=== PATIENT | female | born 1960 ===

== ENCOUNTER 2016-07-27 09:29 | Emergency (ER) | payer SELFPAY ==
[2016-07-27 09:42] VITALS: BP 138/82
[2016-07-27 10:05] LABS: Basophils % (Auto) 0.4 % (0.0-1.8); Eosinophils % (Auto) 0.6 % (0.0-4.3); Hematocrit 42.2 % (30.3-42.9); Hemoglobin 13.5 gm/dl (10.1-14.3); Mean Corpuscular HGB Conc 32 % (30-34); Mean Corpuscular Hemoglobin 26 pg (28-32); Mean Corpuscular Volume 82 fl (79-97); Platelet Count 279 K/mm3 (140-440); Red Blood Count 5.17 M/mm3 (3.65-5.03); Red Cell Distribution Width 15.3 % (13.2-15.2); White Blood Count 11.8 K/mm3 (4.5-11.0)
--- NOTE | 2016-07-27 10:05 | Emergency Department Report ---
Entered by SRIDHAR ALVES, acting as scribe for MARIANELA ST NP. Chief Complaint: Abdominal Pain Stated Complaint: ABD PAIN /BACK PAIN - HPI History of Present Illness: Pt c/o low back pain and LUQ pain nausea - D: normal this am Patient believes she is - lmp 3 m ago, 55 y age no vag bleed or dc nad no meds Denies PMHx Denies previous symptoms Notes tobacco use. Denies EtOH consumption LMP 3 months ago Denies PSHx - ROS Review of Systems: See above - Exam Vital Signs: Vital Signs 07/27/16 09:36 Temperature 98.0 F Pulse Rate 80 Respiratory 16 Rate Blood Pressure 138/82 O2 Sat by Pulse 98 Oximetry Physical Exam: General: alert, awake, and in no acute distress Abdominal: LUQ tenderness MSE screening note: Focused history and physical exam performed. Due to findings the following was ordered: ED Disposition for MSE Condition: Stable Instructions: Abdominal Pain (ED) This documentation as recorded by the scribe,SRIDHAR ALVES,accurately reflects the service I personally performed and the decisions made by ,MARIANELA LEBLANC NP.
[2016-07-27 10:18] LABS: Anion Gap 16 mmol/L; BUN/Creatinine Ratio 21.42; Blood Urea Nitrogen 15 mg/dL (7-17); Calcium 8.9 mg/dL (8.4-10.2); Carbon Dioxide 28 mmol/L (22-30); Chloride 101.5 mmol/L (98-107); Glucose 98 mg/dL (65-100); Potassium 4.1 mmol/L (3.6-5.0); Sodium 141 mmol/L (137-145)
[2016-07-27 10:32] LABS: Bacteria,Urine 1+ /HPF (Negative); Bilirubin,Urine NEG (Negative); Blood,Urine NEG (Negative); Ketones,Urine NEG (Negative); Leukocyte Esterase,Urine SM (Negative); Mucus,Urine FEW /HPF; Nitrite,Urine NEG (Negative); Protein,Urine <15 mg/dL mg/dL (Negative); Urobilinogen,Urine < 2.0 mg/dL (<2.0)
[2016-07-27 10:38] LABS: Alanine Aminotransferase 17 units/L (7-56); Albumin 4.2 g/dL (3.9-5); Albumin/Globulin Ratio 1.2 %; Alkaline Phosphatase 93 units/L (35-129); Amylase 39 units/L (27-131); Lipase 25 units/L (13-60); Total Protein 7.8 g/dL (6.3-8.2)
[2016-07-27 11:02] LABS: Bilirubin,Direct < 0.2 mg/dL (0-0.2)
--- NOTE | 2016-07-27 13:03 | Emergency Department Report ---
ED Abdominal Pain HPI - General Chief Complaint: Abdominal Pain Stated Complaint: ABD PAIN /BACK PAIN Time Seen by Provider: 07/27/16 13:01 Source: patient Mode of arrival: Ambulatory Limitations: No Limitations - History of Present Illness -: Gradual Location: LLQ Radiation: none Migration to: no migration Severity: mild Quality: other Consistency: intermittent Improves With: nothing Worsens With: nothing Context: foreign travel Associated Symptoms: denies other symptoms. denies: nausea, vomiting, diarrhea , fever (perimenopausal. stated she had sex w and afraid ) - Related Data Allergies Allergy/AdvReac Type Severity Reaction Status Date / Time No Known Allergies Allergy Unverified 07/27/16 09:36 ED Review of Systems ROS: Stated complaint: ABD PAIN /BACK PAIN Other details as noted in HPI Comment: All other systems reviewed and negative Constitutional: no symptoms reported Eyes: as per HPI ENT: as per HPI Respiratory: no symptoms reported Cardiovascular: as per HPI Endocrine: no symptoms reported Gastrointestinal: as per HPI, abdominal pain (llq pinching pain). denies: nausea, vomiting, diarrhea, constipation, hematemesis, melena, hematochezia Genitourinary: as per HPI. denies: urgency, dysuria Musculoskeletal: as per HPI. denies: back pain Skin: as per HPI. denies: rash, lesions Neurological: as per HPI Psychiatric: as per HPI Hematological/Lymphatic: as per HPI (no fever. playing on phone. nad) ED Past Medical Hx - Past Medical History Previous Medical History?: No - Surgical History Past Surgical History?: Yes Additional Surgical History: tubal ligation - Social History Smoking Status: Current Every Day Smoker Substance Use Type: None ED Physical Exam - General Limitations: No Limitations General appearance: alert - Head Head exam: Present: atraumatic - Eye Eye exam: Present: normal appearance - ENT ENT exam: Present: normal exam - Neck Neck exam: Present: normal inspection - Respiratory Respiratory exam: Present: normal lung sounds bilaterally - Cardiovascular Cardiovascular Exam: Present: regular rate - GI/Abdominal GI/Abdominal exam: Present: soft, normal bowel sounds. Absent: distended, tenderness, guarding, rebound, rigid, diminished bowel sounds, hyperactive bowel sounds, hypoactive bowel sounds, organomegaly, mass, bruit, pulsatile mass , hernia - Rectal Rectal exam: Present: deferred - Extremities Exam Extremities exam: Present: normal inspection - Back Exam Back exam: Present: normal inspection - Neurological Exam Neurological exam: Present: alert, altered, oriented X3 - Psychiatric Psychiatric exam: Present: normal affect, normal mood - Skin Skin exam: Present: warm, dry, intact, normal color. Absent: rash ED Course Vital Signs 07/27/16 09:36 Temperature 98.0 F Pulse Rate 80 Respiratory 16 Rate Blood Pressure 138/82 O2 Sat by Pulse 98 Oximetry - Reevaluation(s) Reevaluation #1: 07/27/16 13:14 reevaluated no pain told labs and immed relief not preg states she is ready to go non ill appearing discussed menopause will see pcp when returns home ED Medical Decision Making - Lab Data Result diagrams: 07/27/16 09:50 07/27/16 09:50 - Medical Decision Making see note non ill appearing no fever no n/v/d anxious about preg no vag dc no dyuria discussed her labs inc wbc 11.8. abd again examined. no concern for divertic/pid /std health appearing 55 y o dc home follow up locally given taking po water in [facility] [place] [place] Critical care attestation.: If time is entered above; I have spent that time in minutes in the direct care of this critically ill patient, excluding procedure time. ED Disposition Clinical Impression: Abdominal pain Disposition: DISCHARGED TO HOME OR SELFCARE Is pt being admited?: No Does the pt Need Aspirin: No Condition: Good Instructions: Abdominal Pain (ED) Additional Instructions: usual diet hydrate well safe sex follow up MD when you get home Referrals: [facility] Depart [Outside] - 3-5 Days Time of Disposition: 13:02
== END 2016-07-27 13:10 | disposition home or self-care (01) ==
LOC: ED 09:29
DX: R10.32 Left lower quadrant pain (principal); F17.200 Nicotine dependence, unspecified, uncomplicated
CPT/HCPCS: 36415; 80048; 80074; 81001; 82150; 83690; 84703; 85025; 99283